=== PATIENT | male | born 1955 | race Caucasian/White ===

== ENCOUNTER → 2020-06-27 09:48 | Outpatient (BNVA) | payer BC, SELFPAY | PROVIDERS: Family Provider Nurse Practitioner; PCP Nurse Practitioner; Visit Provider Internal Medicine | DX: Z12.11 Encounter for screening for malignant neoplasm of colon (principal); Z20.822 Contact with and (suspected) exposure to COVID-19 | CPT/HCPCS: 87635 ==

== ENCOUNTER 2020-07-01 08:12 | Day surgery (SDC) | payer BC, SELFPAY ==
[2020-06-30 08:45] VITALS: BMI 29.0
[2020-07-01 08:27] VITALS: BP 154/92; PULSE 71; RESP 18; TEMP 36.2; O2SAT 99
--- NOTE | 2020-07-01 08:46 | ANES.PREANE2 ---
Pre-Anesthetic Assessment Pre-Anesthetic Assessment: Height/Weight: Height 1.68 m Weight 81.647 kg Temp Pulse Resp BP Pulse Ox 97.1 F L 71 18 154/92 99 07/01/20 08:27 07/01/20 08:27 07/01/20 08:27 07/01/20 08:27 07/01/20 08:27 Proposed Procedure: Operation Date: 07/01/20 09:15 Proposed Procedures p Colonoscopy 71559 Z12.11(Not Applicable) - Klaus Buckner MD Familial anesthetic complications: none Was Beta Criss taken within 24 hours: N/A Was Clonidine taken within 24 hours: N/A Last intake: Intake Last Liquid Date 06/30/20 Last Liquid Time 19:00 Last Solid Date 06/30/20 Last Solid Time 10:00 Last Intake: 12:00 Social: Social History: Alcohol and No tobacco Comment: daily Exam: Pre-Anes Outpt Exam: alert and oriented x 3 Airway: Submandibular: WNL Cervical ROM: WNL MP: 2 Additional comments: sinificant facial droop s/p vestibular surgery History/ROS: No significant history except as noted and No significant complaints GI: Comments: heartburn Anesthetic Plan: ASA status: 1 Anesthesia: Anesthesia Evaluation and MAC Risk of > 500 ml blood loss (7ml/kg in children): No Data Anesthesia Cardiac Studies: No Data to Display
[2020-07-01] MEDS: sodium chloride 0.9% 1,000 ML 30 ML IV (08:47)
--- NOTE | 2020-07-01 09:53 | P.HP_ITS ---
Same Day Surgery H&P Indication for Procedure/HPI DATE OF PROCEDURE: July 01, 2020 CHIEF COMPLAINT/INDICATIONFOR SURGICAL PROCEDURE: Screen for colon cancer PREOP DIAGNOSIS: Screen for colon cancer PLANNED PROCEDRUE: Operation Date: 07/01/20 09:15 Proposed Procedures p Colonoscopy 48329 Z12.11(Not Applicable) - Klaus Buckner MD Medications/Allergies* Home Medications Medication Instructions Recorded Confirmed Type No Known Home Medications 06/30/20 06/30/20 History Allergies/Adverse Reactions Allergy/AdvReac Type Severity Reaction Status Date / Time Gadolinium-Containing Allergy rash , Verified 07/01/20 08:26 Contrast Medi fever, cough Current Medications: Generic Name Dose Route Start Last Admin Trade Name Freq PRN Reason Stop Dose Admin Sodium Chloride 1,000 mls @ 30 mls/hr 07/01/20 08:30 07/01/20 08:47 Sodium Chloride 0.9% IV 07/02/20 08:29 30 mls/hr .Q24H EDWIN Administration Pertinent Exam Findings alert, oriented x 3, clear to auscultation bilaterally, regular rate & rhythm, operative site marked and procedure specific exam findings Recommendations Surgery/Procedure today Coding Level of Care Code 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
[2020-07-01 10:16] VITALS: BP 121/76; PULSE 79; RESP 16; TEMP 36.3; O2SAT 92
[2020-07-01 10:22] VITALS: BP 138/79; PULSE 70; RESP 16; O2SAT 99
--- NOTE | 2020-07-01 12:49 | ANE.PACU2 ---
Inpatient post-anesthesia follow up: Airway intact: Yes Vital signs: Temperature 97.4 F Pulse Rate 70 Respiratory Rate 16 Blood Pressure 138/79 Pulse Oximetry 99 Oxygen Delivery Me thod Room Air Oxygen Flow Rate Fraction of Inspir ed Oxygen Hydration adequate: Yes Nausea and vomiting: No Pain level: 1 Mental status: Baseline
== END 2020-07-01 10:44 | disposition home or self-care (01) ==
PROVIDERS: Family Provider Nurse Practitioner; PCP Nurse Practitioner; Visit Provider Internal Medicine
PROC: 0DJD8ZZ Inspection of Lower Intestinal Tract, Via Natural or Artificial Opening Endoscopic (ICD-10-PCS; CPT 45378; principal; 2020-07-01 09:15)
DX: Z12.11 Encounter for screening for malignant neoplasm of colon (principal); Z80.0 Family history of malignant neoplasm of digestive organs
CPT/HCPCS: 45378; 96360; J2704; J7030

== ENCOUNTER 2022-05-02 09:59 | Outpatient (CLI) | payer BC, SELFPAY ==
--- NOTE | 2022-05-02 10:14 | FL_ITS ---
WS: [id number] EXAMINATION: FL barium swallow modifd 60452 REASON FOR EXAM: Pharyngoesoph. dysphagia COMPARISON: None available. ORDER DATE: 05/02/2022 10:21 AM FLUOROSCOPY TIME: 1min [id number] TECHNIQUE: The oral cavity and upper pharyngeal and laryngeal region were observed in the lateral pro jection with fluoroscopy during swallowing. Different consistencies of liquid and food were mixed with barium and a barium pill was administered by the speech pathologist during fluoroscopy. FINDINGS: The oral stage is described in the speech pathologist report. Movement of contrast coated material through the pharynx into the upper esophagus was observed. There was no evidence of penetrat ion or aspiration. Please refer to speech pathologist report for specific details regarding swallowin g function. There was no significant residual.There was a delay in passage of the barium pill at the esophagogastric junction. FL/FL barium swallow modifd 15577 IMPRESSION: PLEASE REFER TO THE SPEECH PATHOLOGIST REPORT FOR ADDITIONAL DETAILS REGARDING THIS MODIFIED BARIUM SWALLOW STUDY
== END 2022-05-02 10:00 | disposition home or self-care (01) ==
LOC: RAD 10:01
PROVIDERS: PCP Nurse Practitioner; Visit Provider Electrodiagnostic Medicine
DX: R13.14 Dysphagia, pharyngoesophageal phase (principal)
CPT/HCPCS: 74230; 92611